=== PATIENT | female | born 1990 | race Caucasian/White ===

== ENCOUNTER → 2023-08-25 | Outpatient (CLI) | payer OTHER ==
[2023-08-25 17:41] LABS: HEMATOCRIT 43.2 % (36.0-47.0); HEMOGLOBIN 14.9 g/dl (12.0-15.5); MEAN CORPUSCULAR HEMOGLOBIN 31.5 pg (27.0-33.0); MEAN CORPUSCULAR HGB CONC 34.5 g/dl (32.0-36.5); MEAN CORPUSCULAR VOLUME 91.3 fl (80.0-96.0); PLATELET COUNT, AUTOMATED 262 10^3/uL (150-450); RED BLOOD COUNT 4.73 10^6/uL (4.00-5.40); WHITE BLOOD COUNT 9.1 10^3/uL (4.0-10.0)
[2023-08-25 18:40] LABS: HIV 1&2 SCREEN NEGATIVE (NEGATIVE)
[2023-08-25 18:48] LABS: HEPATITIS C VIRUS ABY INDEX < 0.02 INDEX (<0.8)
[2023-08-25 19:54] LABS: GC DNA AMPLIFICATION NEGATIVE (NEGATIVE)
== END ==
LOC: M PLALAB 16:09
PROVIDERS: ATTEND Advanced Practice Midwife
DX: Z34.01 Encounter for supervision of normal first pregnancy, first trimester (principal)

== ENCOUNTER → 2023-09-14 | Outpatient (CLI) | payer OTHER ==
[2023-09-14 16:54] LABS: FREE T4 0.91 NG/DL (0.89-1.76); THYROID STIMULATING HORMONE 1.747 uIU/ML (0.55-4.78)
[2023-09-14 16:56] LABS: FREE T3 3.6 PG/ML (2.3-4.2)
== END ==
LOC: M PLALAB 14:36
PROVIDERS: ATTEND Advanced Practice Midwife
DX: E89.0 Postprocedural hypothyroidism (principal)

== ENCOUNTER → 2023-09-20 | Outpatient (CLI) | payer OTHER | LOC: M PLALAB 08:28 | PROVIDERS: ATTEND Advanced Practice Midwife | DX: Z34.01 Encounter for supervision of normal first pregnancy, first trimester (principal) ==

== ENCOUNTER → 2023-11-14 | Outpatient (CLI) | payer OTHER | LOC: M WHC 13:09 | PROVIDERS: ATTEND Obstetrics & Gynecology | DX: O99.282 Endocrine, nutritional and metabolic diseases complicating pregnancy, second trimester (principal) ==

== ENCOUNTER → 2023-12-23 | Outpatient (CLI) | payer OTHER ==
[2023-12-23 15:35] LABS: HEMATOCRIT 37.6 % (36.0-47.0); HEMOGLOBIN 12.6 g/dl (12.0-15.5); MEAN CORPUSCULAR HEMOGLOBIN 30.9 pg (27.0-33.0); MEAN CORPUSCULAR HGB CONC 33.5 g/dl (32.0-36.5); MEAN CORPUSCULAR VOLUME 92.2 fl (80.0-96.0); PLATELET COUNT, AUTOMATED 245 10^3/uL (150-450); RED BLOOD COUNT 4.08 10^6/uL (4.00-5.40); WHITE BLOOD COUNT 9.7 10^3/uL (4.0-10.0)
[2023-12-23 17:14] LABS: GC DNA AMPLIFICATION NEGATIVE (NEGATIVE)
== END ==
LOC: M PLALAB 12:36
PROVIDERS: ATTEND Specialist
DX: Z34.02 Encounter for supervision of normal first pregnancy, second trimester (principal)

== ENCOUNTER → 2023-12-23 | Outpatient (CLI) | payer OTHER ==
[2023-12-23 16:15] LABS: FREE T4 0.9 NG/DL (0.89-1.76)
[2023-12-23 16:16] LABS: THYROID STIMULATING HORMONE 1.933 uIU/ML (0.55-4.78)
== END ==
LOC: M PLALAB 12:38
PROVIDERS: ATTEND Advanced Practice Midwife
DX: E89.0 Postprocedural hypothyroidism (principal)

== ENCOUNTER → 2024-01-02 | Outpatient (CLI) | payer OTHER | LOC: M LAB 06:36 | PROVIDERS: ATTEND Specialist | DX: Z34.02 Encounter for supervision of normal first pregnancy, second trimester (principal) ==

== ENCOUNTER → 2024-02-22 | Outpatient (CLI) | payer OTHER ==
[2024-02-22 11:21] LABS: FREE T4 0.86 NG/DL (0.89-1.76)
[2024-02-22 11:22] LABS: THYROID STIMULATING HORMONE 7.648 uIU/ML (0.55-4.78)
== END ==
LOC: M PLALAB 09:02
PROVIDERS: ATTEND Nurse Practitioner Women's Health
DX: O99.283 Endocrine, nutritional and metabolic diseases complicating pregnancy, third trimester (principal)

== ENCOUNTER → 2024-03-05 | Outpatient (CLI) | payer OTHER ==
[~2024-03-05] MED LIST: ARMO90TA PO; THYR15TA PO; THYR60TA PO
[2024-03-05 18:15] LABS: HEMATOCRIT 37.4 % (36.0-47.0); HEMOGLOBIN 12.1 g/dl (12.0-15.5); MEAN CORPUSCULAR HEMOGLOBIN 27.1 pg (27.0-33.0); MEAN CORPUSCULAR HGB CONC 32.4 g/dl (32.0-36.5); MEAN CORPUSCULAR VOLUME 83.9 fl (80.0-96.0); PLATELET COUNT, AUTOMATED 220 10^3/uL (150-450); RED BLOOD COUNT 4.46 10^6/uL (4.00-5.40); WHITE BLOOD COUNT 7.3 10^3/uL (4.0-10.0)
[2024-03-05 18:33] LABS: ALKALINE PHOSPHATASE 260 U/L (46-116); ALT/SGPT 10 U/L (7.0-40); AST/SGOT 23 U/L (<34); BILIRUBIN,TOTAL 0.4 MG/DL (0.3-1.2); BLOOD UREA NITROGEN 12 MG/DL (9-23); CALCIUM LEVEL 8.9 MG/DL (8.5-10.1); CARBON DIOXIDE LEVEL 22 MMOL/L (20-31); CHLORIDE LEVEL 108 MMOL/L (98-107); CREATININE FOR GFR 0.82 MG/DL (0.55-1.30); GLOMERULAR FILTRATION RATE > 60.0 (>60); GLUCOSE, FASTING 63 MG/DL (60-100); POTASSIUM SERUM 4.7 MMOL/L (3.5-5.1); SODIUM LEVEL 136 MMOL/L (136-145); TOTAL PROTEIN 5.7 G/DL (5.7-8.2)
== END ==
LOC: M PLALAB 15:17
PROVIDERS: ATTEND Obstetrics & Gynecology
DX: O16.9 Unspecified maternal hypertension, unspecified trimester (principal); Z3A.00 Weeks of gestation of pregnancy not specified

== ENCOUNTER → 2024-03-05 | Outpatient (REF) | payer OTHER ==
[2024-03-05 18:03] LABS: CREATININE,RANDOM URINE 147.5 MG/DL
[2024-03-05 18:06] LABS: TOTAL PROTEIN,RANDOM URINE 686.9 MG/DL (0.0-14.0)
== END ==
LOC: M PLALAB 14:52
PROVIDERS: ATTEND Obstetrics & Gynecology
DX: O16.9 Unspecified maternal hypertension, unspecified trimester (principal); Z3A.36 36 weeks gestation of pregnancy

== ENCOUNTER 2024-03-06 10:05 | Inpatient (IN) | payer OTHER ==
[~2024-03-06] VITALS: Ht 152.4 cm; Wt 74.3 kg
[2024-03-06] VITALS (50 sets, daily range): BP systolic 120–179; BP diastolic 66–108
[2024-03-06] MEDS ORDERED: ARMO90TA PO (10:33)
[2024-03-06] MEDS ORDERED: THYR15TA PO (10:33)
[2024-03-06] MEDS ORDERED: THYR60TA PO (10:33)
[2024-03-06] MEDS ORDERED: CARBOPROST TROMETHAMINE 250 MCG/ML AMP IM PRN (10:40)
[2024-03-06] MEDS ORDERED: LABETALOL 100MG/20ML VIAL IV ONE (10:40)
[2024-03-06] MEDS ORDERED: LACTATED RINGER'S 1000 ML IV PRN (10:40)
[2024-03-06] MEDS ORDERED: TRANEXAMIC ACID INJection 1,000 MG in NS 100 ML IV PRN (10:40)
[2024-03-06] MEDS ORDERED: hydrALAZINE 20MG/ML 1ML VIAL IV ONE (10:40)
[2024-03-06] MEDS: NIFEdipine 10 MG CAP PO STA (10:47)
[2024-03-06] MEDS ORDERED: LABETALOL 100MG/20ML VIAL IV PRN (10:50)
[2024-03-06] MEDS ORDERED: hydrALAZINE 20MG/ML 1ML VIAL IV PRN (11:00)
[2024-03-06] MEDS: MAG Sulf (L&D) 4 GM/100 ML 4 GM in IV 1 EA IV ONE (11:01)
[2024-03-06] MEDS: LR 1,000 ML IV SCH (11:16)
[2024-03-06] MEDS: MAG Sulf (OBGYN) 20GM/500ML 20,000 MG in IV 1 EA IV SCH (11:21)
[2024-03-06] MEDS: BETAMETHASONE SOLUSPAN 6MG/ML 5ML VIAL IM SCH (11:23)
[2024-03-06] MEDS: miSOPROStol 50MCG 1/2 TABLET BUC ONE ×2 (11:55→17:22)
[2024-03-06 12:02] LABS: HEMATOCRIT 40.2 % (36.0-47.0); MEAN CORPUSCULAR HEMOGLOBIN 26.9 pg (27.0-33.0); MEAN CORPUSCULAR HGB CONC 32.3 g/dl (32.0-36.5); MEAN CORPUSCULAR VOLUME 83.2 fl (80.0-96.0); PLATELET COUNT, AUTOMATED 229 10^3/uL (150-450); RED BLOOD COUNT 4.83 10^6/uL (4.00-5.40); WHITE BLOOD COUNT 8.1 10^3/uL (4.0-10.0)
[2024-03-06 13:02] LABS: HEPATITIS C VIRUS ABY INDEX < 0.02 INDEX (<0.8)
[2024-03-06 13:08] LABS: ALBUMIN 2.1 G/DL (3.2-5.2); ALKALINE PHOSPHATASE 299 U/L (46-116); ALT/SGPT 13 U/L (7.0-40); AST/SGOT 35 U/L (<34); BILIRUBIN,TOTAL 0.3 MG/DL (0.3-1.2); BLOOD UREA NITROGEN 16 MG/DL (9-23); CALCIUM LEVEL 10.2 MG/DL (8.5-10.1); CARBON DIOXIDE LEVEL 17 MMOL/L (20-31); CHLORIDE LEVEL 110 MMOL/L (98-107); CREATININE FOR GFR 0.82 MG/DL (0.55-1.30); GLOMERULAR FILTRATION RATE > 60.0 (>60); GLUCOSE, FASTING 71 MG/DL (60-100); POTASSIUM SERUM 4.5 MMOL/L (3.5-5.1); SODIUM LEVEL 139 MMOL/L (136-145); TOTAL PROTEIN 6.1 G/DL (5.7-8.2)
[2024-03-06 17:30] LABS: FREE T3 3.3 PG/ML (2.3-4.2); FREE T4 0.91 NG/DL (0.89-1.76); THYROID STIMULATING HORMONE 5.209 uIU/ML (0.55-4.78)
[2024-03-06] MEDS: ACETAMINOPHEN 500 MG TAB PO PRN (18:43)
[2024-03-06] MEDS: miSOPROStol 50MCG 1/2 TABLET PO ONE (21:56)
[2024-03-06] MEDS ORDERED: miSOPROStol 50MCG 1/2 TABLET BUC ONE (22:00)
[2024-03-06 22:16] LABS: HEMATOCRIT 38.5 % (36.0-47.0); HEMOGLOBIN 12.7 g/dl (12.0-15.5); MEAN CORPUSCULAR HEMOGLOBIN 26.9 pg (27.0-33.0); MEAN CORPUSCULAR VOLUME 81.6 fl (80.0-96.0); PLATELET COUNT, AUTOMATED 259 10^3/uL (150-450); RED BLOOD COUNT 4.72 10^6/uL (4.00-5.40); WHITE BLOOD COUNT 9.5 10^3/uL (4.0-10.0)
[2024-03-06 22:52] LABS: ALBUMIN 2.1 G/DL (3.2-5.2); ALKALINE PHOSPHATASE 278 U/L (46-116); ALT/SGPT 21 U/L (7.0-40); AST/SGOT 49 U/L (<34); BILIRUBIN,TOTAL 0.3 MG/DL (0.3-1.2); BLOOD UREA NITROGEN 12 MG/DL (9-23); CALCIUM LEVEL 7.7 MG/DL (8.5-10.1); CARBON DIOXIDE LEVEL 16 MMOL/L (20-31); CHLORIDE LEVEL 104 MMOL/L (98-107); CREATININE FOR GFR 0.72 MG/DL (0.55-1.30); GLOMERULAR FILTRATION RATE > 60.0 (>60); GLUCOSE, FASTING 126 MG/DL (60-100); POTASSIUM SERUM 4.4 MMOL/L (3.5-5.1); SODIUM LEVEL 130 MMOL/L (136-145)
[2024-03-07] VITALS (81 sets, daily range): BP systolic 88–159; BP diastolic 46–102; O2SAT 97
[2024-03-07] MEDS: PENICILLIN G POTASSIUM 5 MU IV 5 MU in D5W MINI-BAG PLUS 100 ML IV STA (00:15)
[2024-03-07] MEDS: ONDANSETRON 4MG 2ML VIAL IV ONE (00:50)
[2024-03-07] MEDS: OXYTOCIN DRIP 30 UNITS in IV 1 EA IV SCH ×2 (02:22→21:30)
[2024-03-07] MEDS ORDERED: NALOXONE INJ 0.4MG/1ML VIAL IV PRN (03:30)
[2024-03-07] MEDS ORDERED: EPIDURAL/PCA KEYS XX PRN (03:30)
[2024-03-07] MEDS ORDERED: ONDANSETRON 4MG 2ML VIAL IV PRN (03:30)
[2024-03-07] MEDS ORDERED: LR 500 ML IV PRN (03:30)
[2024-03-07] MEDS: PEN G POT 3,000,000 UNIT/50 ML 3,000,000 UNIT in IV 1 EA IV SCH (04:29)
[2024-03-07] MEDS: FENTANYL/ROPIVACAINE/NACL BAG 100 ML EPIDURAL SCH (04:38)
[2024-03-07] MEDS: ePHEDrine SULFATE 25 MG/5 ML(5MG/ML) SYRINGE IVP PRN (05:35)
[2024-03-07] MEDS: diphenhydrAMINE 50MG/ML VIAL IV PRN (06:49)
[2024-03-07] MEDS: THYROID 30MG TAB PO SCH (07:19)
[2024-03-07] MEDS ORDERED: THYR15TA PO (08:35)
[2024-03-07] MEDS: OXYTOCIN DRIP 30 UNITS in IV 1 EA IV PRN (20:14)
[2024-03-07] MEDS ORDERED: DOCUSATE SODIUM 100MG CAPSULE PO PRN (20:25)
[2024-03-07] MEDS ORDERED: IBUPROFEN 800 MG TAB PO PRN (20:25)
[2024-03-07] MEDS ORDERED: RHO(D) IMMUNE GLOBULIN/MALTOSE 500MCG(2500IU)/2.2ML VIAL (WINRHO) IM SCH (20:25)
[2024-03-07] MEDS ORDERED: IBUPROFEN 600MG TAB PO PRN (20:25)
[2024-03-07] MEDS: DIBUCAINE 1% OINTMENT 30GM TOP PRN (23:08)
[2024-03-08] VITALS (9 sets, daily range): BP systolic 120–170; BP diastolic 80–106; O2SAT 97–99
[2024-03-08] MEDS: CALCIUM CARBONATE 500 MG CHEW U/D PO PRN (06:31)
[2024-03-08] MEDS: PRENATAL VITAMINS CHEWABLE TABLET PO SCH (09:46)
[2024-03-09] VITALS (8 sets, daily range): BP systolic 120–154; BP diastolic 70–98; O2SAT 96–100
[2024-03-09] MEDS ORDERED: UNRESOLVED CLARIFICATION ENTRY XX SCH (00:01)
[2024-03-09] MEDS ORDERED: PILL CUTTER 1 EACH XX PRN (04:55)
[2024-03-09] MEDS: THYROID 30MG TAB PO SCH (05:49)
[2024-03-09] MEDS: MEASLES,MUMPS,RUBELLA VACCINE INJ (MMR-II) SC.IMMUN ONE (09:00)
[2024-03-09] MEDS: LABETALOL 200 MG TAB PO ONE (12:55)
[2024-03-09] MEDS: LABETALOL 200 MG TAB PO SCH (20:53)
[2024-03-10 02:00] VITALS: BP 141/75; O2SAT 97
[2024-03-10 06:00] VITALS: BP 139/87; O2SAT 97
[2024-03-10 08:45] VITALS: BP 167/86
[2024-03-10 09:44] VITALS: BP 141/84
[2024-03-10] MEDS ORDERED: IBUP80TA PO (11:35)
[2024-03-10] MEDS ORDERED: ACET-683 PO (11:35)
[2024-03-10] MEDS ORDERED: LABE20TAB PO (11:36)
== END 2024-03-10 12:56 | disposition home or self-care (01) | DRG 807 ==
LOC: M LDI 10:05 → M OBS 03-07 22:24
PROVIDERS: ADMIT Obstetrics & Gynecology; ATTEND Advanced Practice Midwife
PROC: 3E0P7GC Introduction of Other Therapeutic Substance into Female Reproductive, Via Natural or Artificial Opening (ICD-10-PCS; 2024-03-06)
PROC: 10E0XZZ Delivery of Products of Conception, External Approach (ICD-10-PCS; principal; 2024-03-07)
DX: O14.14 Severe pre-eclampsia complicating childbirth (principal); Z37.0 Single live birth; Z3A.36 36 weeks gestation of pregnancy; Z88.2 Allergy status to sulfonamides; Z79.899 Other long term (current) drug therapy